=== PATIENT | female | born 1975 | race American Indian/Alaskan Native ===

== ENCOUNTER 2022-07-06 15:27 | Outpatient (CLI) | payer OTHER | END 2022-07-06 15:28 | disposition home or self-care (01) | LOC: LABHHL 15:27 | PROVIDERS: ATTEND Otolaryngology Sleep Medicine | DX: J34.2 Deviated nasal septum (principal); J32.9 Chronic sinusitis, unspecified; J34.3 Hypertrophy of nasal turbinates | CPT/HCPCS: 88304 ==